=== PATIENT | female | born 1960 | race Caucasian/White ===

== ENCOUNTER 2019-07-28 09:21 | Day surgery (SDC) | payer OTHER ==
[~2019-07-28] VITALS: Ht 160 cm; Wt 85.1 kg
[~2019-07-28 09:21] MED LIST: ATORVASTATIN; METFORMIN
[2019-07-28 09:59] VITALS: Ht 160 cm; Wt 85.1 kg
[2019-07-28] MEDS ORDERED: PROPOFOL 20 ML ONE (10:32)
[2019-07-28] MEDS ORDERED: LIDOCAINE 100 MG SYRINGE ONE (10:32)
[2019-07-28 10:37] VITALS: BP 151/68; PULSE 71; RESP 15
[2019-07-28 11:30] VITALS: BP 128/71; PULSE 54; RESP 18
== END 2019-07-28 16:34 | disposition home or self-care (01) ==
LOC: GIL 09:21
PROVIDERS: ATTEND Internal Medicine Gastroenterology
DX: Z12.11 Encounter for screening for malignant neoplasm of colon (principal); K64.8 Other hemorrhoids; E11.9 Type 2 diabetes mellitus without complications; Z79.84 Long term (current) use of oral hypoglycemic drugs
CPT/HCPCS: 45378; 82962; J2001; Z7610